=== PATIENT | male | born 1975 | race Caucasian/White ===

== ENCOUNTER 2018-07-31 10:19 | Emergency (ER) | payer SELFPAY ==
[~2018-07-31] VITALS: Ht 157.5 cm; Wt 53.5 kg
[2018-07-31 10:26] VITALS: BP 135/81
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
--- NOTE | 2018-07-31 10:29 | NUR ---
PT AMBULATED TO ER BED 02
[2018-07-31] MEDS ORDERED: KETOROLAC 60 MG/2 ML VIAL IM ONE (10:30)
--- NOTE | 2018-07-31 10:30 | NUR ---
ERMD AT BEDSIDE
--- NOTE | 2018-07-31 10:51 | NUR ---
IM MEDS GIVEN-NADR AT THIS TIME
[2018-07-31 10:55] VITALS: BP 132/91
== END 2018-07-31 10:55 | disposition home or self-care (01) ==
LOC: MED 10:19
DX: M79.602 Pain in left arm (principal)
CPT/HCPCS: 96372; 99283; J1885